=== PATIENT | female | born 1970 | race Caucasian/White ===

== ENCOUNTER 2022-05-25 00:03 | Day surgery (SDC) | payer OTHER, SELFPAY ==
[2022-05-06 09:20] VITALS: BMI 28.3
--- NOTE | 2022-05-24 13:09 | P.PNAN_ITS ---
Anes - Initial Pre Proc Eval Procedure: Operation Date: 05/25/22 07:30 Proposed Procedures p Screening Colonoscopy - Juarez Loja MD Date/Time: 05/24/22 13:09 Surgeon: Juarez Loja MD Pre Op Diagnosis: neoplasm screening Patient Data Age: 51 Gender: F Height: 1.7 m Weight: 82 kg Allergies Allergy/AdvReac Type Severity Reaction Status Date / Time No Known Allergies Allergy Unknown Verified 05/25/22 06:29 Home Medications Medication Instructions Recorded Confirmed Type calcium citrate 315 mg 1 tablet PO DAILY 02/23/22 05/06/22 History calcium-vitamin D3 6.25 mcg (250 unit) tablet (Citracal + Vitamin D Maximum) multivitamin (Daily Multi-Vitamin 1 tablet PO DAILY 02/23/22 05/06/22 History tablet) Fish Oil 700 mg BYMOUTH DAILY 05/06/22 05/06/22 History Patient hx anesthesia problems: none Family hx anesthesia problems: none Results Review: All pre-operative results and documents have been reviewed as part of the pre- operative evaluation. [facility] Past Medical History Medical History (Updated 05/24/22 @ 13:09 by Benigno Madera MD) Macular degeneration Surgical History Surgical History deliv NOS-unsp (~1997) Family History Family History Father Hypertension Mother Hypertension Other Carcinoma of colon Family history of kidney disease Family history of malignant neoplasm Social History Social History Smoking status: Never smoker Alcohol intake: current Drinks per week: 1 Substance use: never Substance use type: does not use Living arrangements: with family Spiritual care concerns: No Anes - Eval Final PreProcedure Day of Procedure 05/24/22 13:09 Patient weight: overweight Heart: regular rate and rhythm Lungs: clear to auscultation and normal air movement Airway: Mallampati scale class II Neurological: alert and oriented Last oral intake: >/= 8 hours ASA classification: II Emergent: no Anesthetic plan: proceed Anesthesia type and monitoring: general GIVS Results Review: All pre-operative results and documents have been reviewed as part of the pre- operative evaluation. Informed Consent: The patient's anesthetic plan and its attendant risks and benefits were discussed with the patient/family/POA. Questions were solicited and answers provided to the satisfaction of the patient/family/POA.
[2022-05-25 06:30] VITALS: BP 124/71; PULSE 80; RESP 18; TEMP 36.2; O2SAT 100; BMI 27.8
[2022-05-25] MEDS: LACTATED RINGERS 1,000 ML 150 ML IV CONT (06:40)
--- NOTE | 2022-05-25 07:25 | PM.HPGS ---
History of Present Illness History of Present Illness Consent: Risks, benefits, and alternatives have been discussed and questions answered. Patient agrees to proceed with procedure. Chief complaint: neoplasm screening Narrative: Chika Esparza is a 51 year old female here for first screening colonoscopy Review of Systems Constitutional: Constitutional: Denies headache(s) and Denies weakness Eyes: Eyes: Denies blurry vision ENT: Reports Normal hearing present, Denies headache(s) and Denies neck pain Cardiovascular: Cardiovascular: Denies chest pain and Denies dyspnea Respiratory: Respiratory: Denies dyspnea Gastrointestinal: Gastrointestinal: Reports no additional gastrointestinal complaints Genitourinary: Genitourinary: Denies dysuria Musculoskeletal: Musculoskeletal: Denies neck pain Integumentary/Breasts: Skin/Breast: Denies dry skin Neurologic: Reports Normal hearing present, Denies headache(s) and Denies weakness Psychiatric: Psychiatric: Denies anxiety Endocrine: Endocrine: Denies change in body appearance Hematologic/Lymphatic: Hematologic/Lymphatic: Denies easy bleeding Allergic/Immunologic: Allergic/Immunologic: Denies urticaria PMF Past Medical History Medical History (Updated 05/25/22 @ 07:26 by Juarez Loja MD) Colon cancer screening Macular degeneration Surgical History Surgical History deliv NOS-unsp (~1997) Family History Family History Father Hypertension Mother Hypertension Other Carcinoma of colon Family history of kidney disease Family history of malignant neoplasm Social History Social History Smoking status: Never smoker Alcohol intake: current Drinks per week: 1 Substance use: never Substance use type: does not use Living arrangements: with family Spiritual care concerns: No Meds Home Medications and Allergies Home Medications Medication Instructions Recorded Confirmed Type calcium citrate 315 mg 1 tablet PO DAILY 02/23/22 05/06/22 History calcium-vitamin D3 6.25 mcg (250 unit) tablet (Citracal + Vitamin D Maximum) multivitamin (Daily Multi-Vitamin 1 tablet PO DAILY 02/23/22 05/06/22 History tablet) Fish Oil 700 mg BYMOUTH DAILY 05/06/22 05/06/22 History Allergies Allergy/AdvReac Type Severity Reaction Status Date / Time No Known Allergies Allergy Unknown Verified 05/25/22 06:29 Vital Signs Vital Signs - 24 hr 05/25/22 06:30 Temperature 97.1 F L Pulse Rate 80 Respiratory Rate 18 Blood Pressure 124/71 Pulse Oximetry 100 Oxygen Delivery Room Air Exam Const: General: comfortable and no acute distress HENMT: General nose exam: Normal nares present Eyes: General: appearance normal, both eyes and all related structures Neck: Neck: no JVD Resp: Auscultation: clear to auscultation bilaterally Cardio: Rate: regular rate Rhythm: regular rhythm GI: Inspection: non-distended GI Palp: Yes Soft to palpation Skin: General skin exam: normal color Neuro: General: gait normal Speech: normal speech Extrem: General: normal to inspection Psych: Mental Status: mental status grossly normal Assessment and Plan Assessment and plan (1) Colon cancer screening: Code(s): Z12.11 - Encounter for screening for malignant neoplasm of colon Status: Acute Assessment and Plan: colonoscopy
[2022-05-25 07:46] VITALS: BP 105/63; PULSE 73; RESP 22; O2SAT 100
[2022-05-25 07:56] VITALS: BP 131/98; PULSE 72; RESP 24; O2SAT 100
[2022-05-25 08:06] VITALS: BP 115/56; PULSE 69; RESP 20; O2SAT 100
== END 2022-05-25 08:13 | disposition home or self-care (01) ==
PROVIDERS: PCP Family Medicine; Visit Provider Internal Medicine Gastroenterology
PROC: 0DJD8ZZ Inspection of Lower Intestinal Tract, Via Natural or Artificial Opening Endoscopic (ICD-10-PCS; CPT 45378; principal; 2022-05-25 07:30)
DX: Z12.11 Encounter for screening for malignant neoplasm of colon (principal); D12.8 Benign neoplasm of rectum; K64.8 Other hemorrhoids; H35.30 Unspecified macular degeneration
CPT/HCPCS: 45385; 88305; J2704; J7120

== ENCOUNTER → 2022-06-24 11:49 | Outpatient (CLI) | payer OTHER, SELFPAY ==
--- NOTE | ~2022-06-24 | XR_ITS ---
XR knee RT min 4V DATE: 06/24/2022 12:10 INDICATION: Chronic right knee pain for one month. No injury. TECHNIQUE: AP, lateral, bilateral oblique views COMPARISON: None FINDINGS: No fracture or dislocation or joint effusion. Joint spaces are well preserved. No radiopaqu e intra-articular loose body or chondrocalcinosis. No periosteal reaction or bone destruction. IMPRESSION: Negative Reviewed, dictated and finalized at location B. IMPRESSION: Negative
== END ==
PROVIDERS: PCP Family Medicine; Visit Provider Family Medicine
DX: M25.561 Pain in right knee (principal)
CPT/HCPCS: 73564

== ENCOUNTER 2022-08-25 16:42 | Outpatient (CLI) | payer OTHER, SELFPAY ==
--- NOTE | ~2022-08-25 | MR_ITS ---
EXAMINATION: MR knee RT wo con DATE: 08/25/2022 17:18 INDICATION: Right knee pain TECHNIQUE: Magnetic resonance imaging (MRI) of the right knee was performed without intravenous contr ast. Sequences included coronal PD-weighted FSE, coronal PD-weighted FS FSE, sagittal T2-weighted FS E, sagittal PD-weighted FS FSE and axial PD weighted fat saturated FSE. COMPARISON: Right knee radiographs dated 06/14/2022 FINDINGS: Medial compartment: Medial meniscus is normal. Mild chondral surface irregularity and minimal subarticular edema-like sig nal change at the junction of the anterior weightbearing medial femoral condyle and the inferior aspe ct of the medial trochlea. Articular cartilage is otherwise normal. Lateral compartment: Lateral meniscus is normal. Mild chondral surface irregularity and minimal subarticular edema-like si gnal change at the junction of the anterior weightbearing lateral femoral condyle and the inferior as pect of the lateral trochlea. Articular cartilage is otherwise normal. Patellofemoral compartment: Articular cartilage is normal aside from the previously noted small regions of mild chondral surface irregularity and minimal subarticular edema-like signal change at the junction of the anterior weight bearing portions of the medial lateral femoral condyles and the inferior aspect of the medial and lat eral trochlea. Ligaments and tendons: Anterior and posterior cruciate ligaments are normal. The medial collateral ligament and fibular saba ateral ligament complex are normal. Patellar tendon is normal. Very mild tendinopathy without discret e tear at the distal quadriceps tendon. The visualized medial and lateral hamstring tendons as well a s the iliotibial band are normal. Fluid: Small right knee joint effusion. No loose osteochondral bodies identified. Osseous/other: Bone alignment is normal. No fracture or pathologic marrow replacing process. IMPRESSION: 1. Minimal osteoarthritis with small regions of shallow chondral surface irregularity and minimal sub articular edema-like signal change at the junctions of the anterior weightbearing medial lateral femo ral condyles in the inferior margins of the medial and lateral trochlea. 2. Very mild distal quadriceps tendinopathy without discrete tear. Reviewed, dictated and finalized at location B. IMPRESSION: 1. Minimal osteoarthritis with small regions of shallow chondral surface irregu larity and minimal subarticular edema-like signal change at the junctions of th e anterior weightbearing medial lateral femoral condyles in the inferior margin s of the medial and lateral trochlea. 2. Very mild distal quadriceps tendinopathy without discrete tear.
== END 2022-08-25 16:43 | disposition home or self-care (01) ==
PROVIDERS: PCP Family Medicine; Visit Provider Orthopaedic Surgery
DX: M17.11 Unilateral primary osteoarthritis, right knee (principal); M25.461 Effusion, right knee
CPT/HCPCS: 73721

== ENCOUNTER 2025-07-23 00:25 | Day surgery (SDC) | payer BC, OTHER, SELFPAY ==
[2025-07-10 15:12] VITALS: BMI 28.2
--- OUTSIDE RECORDS SUMMARY | 2025-07-23 00:28 | XMS_ITS | Encounter Summary ---
Author Organization [facility] Healthcare Address [address] [place] [address] Care Team Providers Care Supreme Court Judge Name Role Phone Matteo Estrada MD Primary Care Provider Encounter Details Date Type Department Care Team (Late st Contact Info) Description 06/14/2025 Results Follow-Up [facility] [address] [place] [address] [address] [place] [address] Florence Gaspar, [facility] [address] [place] [address] Pap, reflex HPV Social History Tobacco Use Types Packs/Day Years Used Date Smoking Tobacco: Never Smokeless Tobacco: Never Alcohol Use Standard Drinks/Week Comments No 0 (1 standard drink = 0.6 oz pur e alcohol) Humiliation, Afraid, Rape, and Kick questionnair e Answer Date Recorded Within the last year, have y ou been afraid of your partner or ex-partner? No 05/09/2024 Within the last year, have y ou been humiliated or emotionally abused in other ways by your partner or ex-partner? No Within the last year, have y ou been kicked, hit, slapped, or otherwise physically hurt by your partner or ex-partner? No 05/09/2024 Within the last year, have y ou been raped or forced to have any kind of sexual activity by your partner or ex-partner? No 05/09/2024 PHQ-2 Answer Date Recorded PHQ-2 Total Score (If total score is 3 or more points, staff should administer the PHQ-9) 0 06/12/2025 Comments No Sex and Gender Information Value Date Recorded Sex Assigned at Not on file Legal Sex Female 1:53 AM LOAD PLANNER Gender Identity Female 05/09/2024 1:39 PM CDT Sexual Orientation Not on file documented as of this encounter Plan of Treatment Not on file documented as of this encounter Visit Diagnoses Not on filedocumented in this encounter Care Teams Supreme Court Judge Relationship Specialty Start Date End Date Matteo Estrada MD PCP - General 09/17/19 documented as of this encounter
--- OUTSIDE RECORDS SUMMARY | 2025-07-23 00:28 | XMS_ITS | Encounter Summary ---
Author Organization [facility] Healthcare Address [address] [place] [address] Care Team Providers Care Glueline Worker Name Role Phone Matteo Estrada MD Primary Care Provider Reason for Visit * Reason Onset Date Comments Scheduling Appointments 04/28/2021 confirmi ng mammogram appt- no answer Encounter Details Date Type Department Care Team (Late st Contact Info) Description 04/28/2021 Telephone [facility] [address] [place] [id number] Tonya Parry RT Scheduling Appointments (confirming mammogram appt- no answer) Social History Tobacco Use Types Packs/Day Years Used Date Smoking Tobacco: Never Smokeless Tobacco: Never Alcohol Use Standard Drinks/Week Comments No 0 (1 standard drink = 0.6 oz pur e alcohol) PHQ-2 Answer Date Recorded PHQ-2 Total Score (If total score is 3 or more points, staff should administer the PHQ-9) 0 01/07/2021 Comments No Sex and Gender Information Value Date Recorded Sex Assigned at Not on file Legal Sex 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
--- OUTSIDE RECORDS SUMMARY | 2025-07-23 00:28 | XMS_ITS | Clinical Summary ---
Author Organization [facility] Address [address] [place] [address] Care Team Providers Care Assembler Seat Name Role Phone Matteo Estrada MD Primary Care Provider Source Comments [facility],non-owned Affiliates and Associated Physician Practices is amultiple site organization consisting of ambulatory clinics and hospital sitesin [place], [place], [place] and [place]. This disclosure is being madepursuant to the Care Everywhere program and may not contain all information available regarding this patient. Last updated 18.[facility] Allergies No known active allergies Medications * Be aware that medications may not be up to date on this document. Alwaysverify current medications with the patient. Azelastine HCl 137 MCG/SPRAY SOLN USE 1 - 2 SPRAY INTRANASALLY EVERY 12 TO 24 HOURS ADMINISTER INTO EACH NOSTRIL. AIM BACK/UP/OUT 4 Active calcium carbonate - vitamin D (Caltrate + D) 600-20 MG-MCG tablet Take 1 (one) tablet by mouth once daily Active Athens-3 Fatty Acids (KP Fish Oil) 1200 MG Active Multiple Vitamins-Minera ls (Daily Combo Multi Vitamins) TABS Active Misc Natural Products (GLUCOSAMINE CHOND CMP ADVANCED PO) Active Active Problems Problem Noted Date Diagnosed Date Myopic macular degeneration of right eye 009 Encounters Date Type Department Care Team Description 07/03/2025 10:45 AM CDT Office Visit [facility] - Otolaryngology [address] [phone] Stanley Coyne MD Vocal cord polyp (Primary Dx); Dysphonia 07/03/2025 Travel 05/28/2025 8:39 AM CDT Anesthesia Event [facility] - General Surgery [address] [facility], [address] [place] [address] Cj Nieto MD 05/28/2025 8:05 AM CDT - 05/28/2025 10:00 AM CDT Surgery [facility] Surgery [address] [place] [address], [address] [place] [address] Stanley Coyne MD SUSPENSION MICROLARYNGOSCOPY WITH EXCISION OF VOCAL FOLD LESION 05/28/2025 6:55 AM CDT - 05/28/2025 11:59 PM CDT Hospital Encounter [facility] Surgery [address] [facility], [address] [place] [address] Stanley Coyne MD Surgery General Discharge Disposition: Home or Self Care 05/21/2025 Travel 04/30/2025 Travel 04/26/2025 Orders Only [facility] - ENT [address] [place] [phone] Saida Verdin 04/25/2025 10:15 AM CDT Office Visit [facility] - ENT [address] [place] [phone] Stanley Coyne MD Vocal cord polyp (Primary Dx); Dysphonia 04/25/2025 Travel from Last 3 Months Immunizations Immunization Administration Dates Next Due COVID PFIZER BIVALENT 12Y+ 30mcg/0.3ML Covid Moderna booster monova lent 6y-11yr 0.5ml 10/10/2021,01/24/2021,12/27/2020 Covid Moderna primary monova lent 12+ yr 0.5mL 10/10/2021,01/24/2021,12/27/2020 TD (ADULT), 5 LF TETANUS TOX OID, ADSORBED, PF 11/02/2023 Zoster Hzv Vacc Recombinant Inj Im 02/17/2024, Social History Tobacco Use Types Packs/Day Years Used Date Smoking Tobacco: Never Passive Smoke Exposure: Past Smokeless Tobacco: Never Tobacco Cessation:Counseling Given: Not Answered Alcohol Use Standard Drinks/Week Comments Yes 0 (1 standard drink = 0.6 oz pur e alcohol) 1x/month Comments No Sex and Gender Information Value Date Recorded Sex Assigned at Not on file Legal Sex Female 3:12 PM CDT Gender Identity Not on file Sexual Orientation Not on file Travel History Travel Start Travel End [place] 06/27/2025 07/02/2025 Last Filed Vital Signs Vital Sign Reading Time Taken Comments Blood Pressure 129/69 07/03/2025 10:46 AM CDT Pulse 75 07/03/2025 10:46 AM CDT Temperature 36 C (96.8 F) 05/28/2025 9:36 AM CDT Respiratory Rate 16 05/28/2025 10:00 AM CDT Oxygen Saturation 98% 07/03/2025 10:46 AM CDT Inhaled Oxygen Concentration - - Weight 81.6 kg (180 lb) 07/03/2025 10:46 AM CDT Height 170.2 cm (5' 7) 07/03/2025 10:46 AM CDT Body Mass Index 28.19 07/03/2025 10:46 AM CDT Plan of Treatment Upcoming Encounters Date Type Department Care Team (Late st Contact Info) Description 10/03/2025 10:45 AM SECURITY AND COMPLIANCE PROJECT MANAGER Office Visit [facility] - Otolaryngology [address] [place] [address] [place] [address] [address] [place] [address] Health Maintenance Due Date Last Done Comments COLOGUARD (AGES 45-75) - COLON CA SCREENING 1968 COLON MONITORING 1968 COLONOSCOPY - COLON CA SCREENING 1968 CT COLONOGRAPHY - COLON CA SCREENING 1968 Colorectal Cancer Screening 1968 FIT - COLON CA SCREENING 1968 FLEX SIG - COLON CA SCREENING 1968 LIPID TESTING 1968 HIV SCREENING 1983 HEPATITIS C SCREENING 12/25/1986 HEPATITIS B VACCINE (1 of 3 - 19+ 3-dose series) 1987 PAP SMEAR 1989 PNEUMOCOCCAL VACCINE 50+ (1 of 1 - PCV) 2018 SCREENING FOR DIABETES 01/18/2024 COVID-19 VACCINE ( season) 2024 09/21/2022, 10/10/2021, 10/10/2021, Additional history exists DEPRESSION SCREENING 11/14/2024 INFLUENZA VACCINE (#1) 2025 MAMMOGRAM 06/30/2026 06/30/2024, 06/14, 06/13/2023, Additional history exists DTAP/TDAP/TD VACCINES (2 - Td or Tdap) 11/02/2033 11/02/2023 ZOSTER VACCINE Completed 02/17/2024, 11/10/2023 HIB VACCINE Aged Out No longer eligi ble based on patient's age to complete this topic HPV VACCINE Aged Out No longer eligi ble based on patient's age to complete this topic MENINGOCOCCAL (Group B) VACCINE SHARED DECISION-MAKING Aged Out No longer eligible based on patient's age to complete this topic MENINGOCOCCAL GROUPS A/C/Y/W VACCINE Aged Out No longer eligible based on patient's age to complete this topic Procedures Procedure Name Priority Date/Time Associated Diagnosis Comments PATHOLOGY TISSUE EXAM (STL) Routine 05/28/2025 9:11 AM CDT Vocal fold polyp ENDOTRACHEAL TUBE NOTE Routine 05/28/2025 8:57 AM CDT MI LARYN OP WALLACE REMV LES VC; RECNSTR W/LOC TISS FLP 05/28/2025 8:16 AM CDT Vocal fold polyp MI LARYNGOSCOPY,FLEX/RIG ID+STROBOSCOPY Routine 04/25/2025 11:08 AM CDT Vocal cord polyp from Last 3 Months Results * PATHOLOGY TISSUE EXAM (STL) (05/28/2025 9:11 AM CDT) Case Report Surgical Pathology Report Case: [id number] Authorizing Provider: Stanley Coyne MD Collected: 05/28/2025 09:11 AM Ordering Location: [facility] - Received: 05/28/2025 11:05 AM General Surgery Pathologist: Bj Mclean MD Specimen: Vocal Cord, left vocal cord lesion 05/29/2025 10:04 AM CDT [facility] Final Diagnosis Left vocal cord lesion, biopsy: -- Vocal cord polyp 05/29/2025 10:04 AM T [facility] at 1004 CDT Gross Description Received in formalin labeled with patient's name and left vocal cord lesion are 2 fragments of glass tissue 1 measures 1 mm. The other measures 4 x 1 mm. Submitted entirely in cassette A1. 05/29/2025 10:04 AM CDT [facility] Microscopic Description Microscopic examination substantiates the above cited diagnosis. 05/29/2025 10:04 AM CDT [facility] Disclaimer All histochemical and/or immunohistochemical results are interpreted with controls that demonstrate appropriate staining reactions before reporting results. Note on use of immunocytochemistry reagents: This test was developed and its performance characteristic determined by [facility], Department of Laboratory Medicine. It has not been cleared or approved by the U.S. Food and Drug Administration (FDA). The FDA has determined that such clearance or approval is not necessary. The test is used for clinical purpose. It should not be regarded as investigational or for research. This laboratory is certified to perform high complexity testing. The performance characteristics of the IHC/BILLY assays have been validated on formalin-fixed paraffin embedded tissues only. The assays have not been validated on decalcified tissues. Results should be interpreted with caution. 05/29/2025 10:04 AM CDT [facility] Embedded Images 05/29/2025 10:04 AM CDT [facility] Pathology/Cytolo gy ENTIRE VOCAL CORD / Unknown 05/28/2025 9:11 AM CDT 05/28/2025 11:05 AM CDT Comment:Pre-op diagnosis: Vocal fold polyp [J38.1] Stanley Coyne MD LAB - PATHOLOGY/CYTOLOGY ORDERABLES Final Result [facility] [address] [place] [address] * ETT LINE PERFORMABLE (05/28/2025 8:57 AM CDT) Ava Klein APRN-CRNA - 05/28/2025 8:57 AM CDT Ava Munoz APRN-CRNA 05/28/2025 8:59 AM Endotracheal Tube Placement: Patient Location: OR. Intubation Event Date/Time: 05/28/2025 8:44 AM Procedure: intubation ([id number]) Procedure Section: Sedation: under general anesthesia. Indications for Airway Management: anesthesia Induction: standard IV Patient Position: supine Mask Ventilation: easy with oral airway. Blade Type: Video Blade Size: 3 Laryngoscopy View: grade 1 (full cords) Tube: endotracheal tube Placement: oral Tube type: cuff - inflated Tube Size (MM): 5 Depth of Insertion (CM): 22 Measured From: teeth Cuff volume (mL): 5 Cuff Inflated With: air Number of Attempts: 2. Ventilation between attempts: Yes. Placement Verified By: direct visualization, bilateral breath sounds and CO2 monitor Tube secured with: adhesive tape. Dentition unchanged? Yes Difficult Airway? Yes. Technique: video laryngoscope Reason: anterior larynx, small mouth and other - please comment Procedure Start Time: 05/28/2025 8:44 AM. Procedure End Time: 05/28/2025 8:47 AM. Procedure Total Time: 3 minutes. Staff Section Anesthesia Provider: Ava Munoz APRN-CRNA, Performed the procedure us Cj Nieto MD GENERAL ANESTHESIA ORDERABLE S Final Result * MI LARYNGOSCOPY,FLEX/RIGID+STROBOSCOPY (04/25/2025 11:08 AM CDT) Narrative Aryan Romero MD - 04/25/2025 11:08 AM CDT Aryan Romero MD 04/25/2025 4:35 PM Procedure Note Endoscopy Type: Laryngoscopy with Stroboscopy [id number] Endoscope: Flexible 4mm laryngocope Anesthesia: Lidocaine 2% and Neosynephrine 1/2% (nasal) Procedure Details: The patient was sitting upright in a chair with the head in a slightly anterior sniffing position. The topical anesthesia was administered and then adequate time was allowed for an anesthetic effect. The endoscope was passed thru the nasal cavity with the tongue retracted anteriorly. The tip of the endoscope was positioned in the oropharynx which allowed a complete view of the base of tongue, vallecula, pyriform recesses, epiglottis, bilateral true and false vocal folds, the interarytenoid and post cricoid region, and the immediate subglottis. Findings: Normal movement of the arytenoids and vocal folds bilaterally. Small midfold polyp on medial edge of left true vocal fold partially impacting glottic closure essentially unchanged from a year ago. There is still complete glottic closure with effort with a symmetric mucosal wave. No masses or lesions of the visible supraglottis and subglottis. mild interarytenoid erythema or edema. moderate supraglottic compression. mild laryngeal secretions. No pooling of secretions in the piriform sinuses. No lesions of the nasal cavity, nasopharynx, oropharynx, hypopharynx, and post-cricoid regions were noted. Condition: Stable. Patient tolerated procedure well. Complications: None Dr. Coyne was present for the entirety of the procedure. Stanley Coyne MD PROCEDURE/MINOR SURGICAL ORDERABLES Final Result from Last 3 Months Insurance [facility] [facility] Care Teams Assembler Seat Relationship Specialty Start Date End Date Matteo Estrada MD [address] [facility] [address] PCP - General Family Medicine 01/18/24
--- OUTSIDE RECORDS SUMMARY | 2025-07-23 00:28 | XMS_ITS | Clinical Summary ---
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 Player Name Role Phone Matteo Estrada MD Primary Care Provider Allergies No known active allergies Medications multivitamin-Ca- iron-minerals 18-0.4 mg tablet Take by mouth Active calcium carbonate-vitami n D3 1,500 mg (600mg elemental) -800 unit per tablet Take 1 tablet by mouth daily Active fish oil-dha-epa 1,200-144-216 mg capsule Take by mouth Active glucosamine-hola droitin 250-200 mg tablet 12/07/2023 Active Active Problems Problem Noted Date Diagnosed Date Family history of breast cancer in mother 2024 Assessment & Plan (06/12/2025 11:51 AM CDT): We will plan for prior authorization for breast MRI. Resolved Problems Problem Noted Date Diagnosed Date Resolved Date No pathologic diagnosis 04/18/201305/16 Overview (02/18/2017): No diagnosis Encounters Date Type Department Care Team Description 06/14/2025 Results Follow-Up Grant Farah [address] [place] [address] [address] [place] [address] Татьяна Haynes NP Pap, reflex HPV 06/12/2025 8:30 AM CDT Office Visit Grantdick Farah [address] [place] [address] [address] [place] [address] Татьяна Haynes NP Well woman exam (Primary Dx); Encounter for screening mammogram for malignant neoplasm of breast; Family history of breast cancer in mother from Last 3 Months Surgical History Surgery Date Site/Laterality Comments OTHER SURGICAL HISTORY 11/14/1997 - 11/13/1998 : 12 hr labor OTHER SURGICAL HISTORY 11/14/2002 - 11/13/2003 : 5 hr labor Medical History Medical History Date Comments Hx Other Medical 2007 Macular degener ation Female infertility Infertility Hx Other Medical 1997 ; Outc ome: 40 week 8 lb(s) 6 oz Male Hx Other Medical 2002 ; Outc ome: 40 week 7 lb(s) 13 oz Female Family History Medical History Relation Name Comments Hypertension Father Hypertension; Osteoporosis Maternal Grandmother Osteopo rosis; Breast cancer Maternal Great-Grandmother Breast cancer Mother Triple positiv e, mastectomy. 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 Gender Identity Female 05/09/2024 1:39 PM CDT Sexual Orientation Not on file Obstetrics History Para Term AB IAB SAB Ectopic Multiple Livin g Live Births 2 2 2 2 2 Date Outcome GA Total Labor Labor/2nd/3rd Weight Sex Type Anes PTL Court A1 A5 Name Clin Term CS-Unsp ec Term Vag-Vac uum Last Filed Vital Signs Vital Sign Reading Time Taken Comments Blood Pressure 110/70 06/12/2025 8:34 AM CDT Pulse - - Temperature - - Respiratory Rate - - Oxygen Saturation - - Inhaled Oxygen Concentration - - Weight 83.3 kg (183 lb 9.6 oz) 06/12/2025 8:34 A M CDT Height 170.2 cm (5' 7) 05/09/2024 10:09 AM CDT Body Mass Index 28.76 05/09/2024 10:09 AM CDT Plan of Treatment Health Maintenance Due Date Last Done Comments Colon Cancer Screening-Colonoscopy 1970 Hepatitis C Screening 1970 Hepatitis B Screening 1986 DTaP/Tdap/Td Vaccine (1 - Tdap) 11/03/2023 11/02/2023 Breast Cancer Screening-Mammogram 06/30/2025 06/30/2024, 06/13/2023, 05/06/2022, Additional history exists Covid-19 Vaccine ( season) 2025 10/10/2021, 01/24/2021, 12/27/2020 Influenza Vaccine (#1) 2025 Cervical Cancer Screening 06/12/20262024, 05/09/2024, 02/22/2022, Additional history exists Depression Screening 06/12/2026 06/12/2025, 05/09/2024, 02/22/2022, Additional history exists Regular Well Visit/Exam 18-64 06/12/2026 06/12/2025, 05/09/2024, 04/18/2023, Additional history exists Zoster Vaccine Completed 02/17/2024, 11/10/2023 Pneumococcal vaccine <65 Aged Out No longer eligible based on patient's age to complete this topic Procedures Procedure Name Priority Date/Time Associated Diagnosis Comments PAP, REFLEX HPV Routine 06/12/2025 8:45 AM CDT Well woman exam SCREENING MAMMOGRAM BILATERAL W ATILIO Schedule Routine, Read Routine (OP Routine) 06/30/2024 10:07 AM CDT Encounter for screening mammogram for malignant neoplasm of breast from Last 3 Months or Most Recently Relevant to Health Maintenance Results * Pap, reflex HPV (06/12/2025 8:45 AM CDT) Clinical indication Comment [facility] - 01 Comment:NEGATIVE FOR INTRAEP ITHELIAL LESION OR MALIGNANCY. Specimen adequacy: Comment [facility] - 01 Comment: Satisfactory for evaluation. Endocervical and/or squamous metaplastic cells (endocervical component) are present. Clinician provided ICD10 Comment [facility] - 01 Comment:Z01.419 Performed by Comment [facility] - 01 Comment:Cher Mendez, Parking Enforcer (ASCP) . . [facility] - 01 Note: Comment [facility] - 01 Comment: The Pap smear is a screening test designed to aid in the detection of premalignant and malignant conditions of the uterine cervix. It is not a diagnostic procedure and should not be used as the sole means of detecting cervical cancer. Both false-positive and false-negative reports do occur. Test methodology Comment [facility] - 01 Comment: This liquid based ThinPrep(R) pap test was screened with the use of an image guided system. . Comment [facility] - 01 Comment: The HPV DNA reflex criteria were not met with this specimen result therefore, no HPV testing was performed. Thin prep 06/12/2025 8:45 AM CDT 06/12/2025 Narrative [facility] - 06/14/2025 10:11 AM CDT Performed at: - [address] [id number] Neon Electrician: Nani Perera MD, Phone: [phone] Specimen Comment: [id number] Specimen Comment: No. of containers..01 ThinPrep Vial us Татьяна Haynes NP LAB CYTOLOGY ORDERABLES Fin al Result [facility] - 01 * Screening Mammogram Bilateral W Atilio (06/30/2024 10:07 AM CDT) Anatomical Region Laterality Modality Breast Bilateral Mammography 07/02/2024 8:35 AM CDT Impressions 07/02/2024 8:35 AM CDT There is no mammographic evidence of malignancy. A 1 year screening mammogram is recommended. BI-RADS: 1 - Negative. The patient has been or will be contacted. The patient will be entered into a reminder system with a target due date of 1 year for her next mammogram. Electronically signed by: Dolly Dias M.D. Narrative 07/02/2024 8:35 AM CDT EXAMINATION: SCREENING MAMMOGRAM BILATERAL W ATILIO ORDERING HEALTHCARE PROVIDER: ТАТЬЯНА HAYNES HISTORY: Routine screening mammography. COMPARISON: 06/13/2023, 05/06/2022, 04/29/2021, 11/05/2019 TECHNIQUE: CC and MLO views of the bilateral breasts were obtained with digital technique using breast tomosynthesis with C view. Computer aided detection was utilized. FINDINGS: DENSITY: There are scattered fibroglandular elements in the bilateral breasts. BREASTS: There are no suspicious masses, suspicious calcifications, or other suspicious findings in either breast. There has been no suspicious interval change. Татьяна Haynes TARP REPAIRER IMG MAMMO PROCEDURES Final Result from Last 3 Months or Most Recently Relevant to Health Maintenance Insurance [facility] CHOICE PLUS [facility] HMO/PPO Address: [address] [address] [place] [address] [facility] H[facility] CHOICE PLUS [facility] HMO/PPO Address: [address] [address] [place] [address] [facility] Care Teams [employer]fl Player Relationship Specialty Start Date End Date Matteo Estrada MD PCP - General 09/17/19
[2025-07-23 07:15] VITALS: BP 122/67; PULSE 80; RESP 16; TEMP 36.5; O2SAT 100; BMI 28.5
[2025-07-23] MEDS: LACTATED RINGERS 1,000 ML 150 ML IV CONT (07:30)
--- NOTE | 2025-07-23 07:45 | P.PNAN_ITS ---
Anes - Initial Pre Proc Eval Procedure: Operation Date: 07/23/25 08:30 Proposed Procedures p Screening Colonoscopy - Juarez Loja MD Date/Time: 07/23/25 07:45 Surgeon: Juarez Loja MD Pre Op Diagnosis: Personal history of colon polyps, unspecified Patient Data Age: 54 Gender: F Height: 1.7 m Weight: 82.6 kg Last Vital Signs Temp 36.5 C 07/23/25 07:15 Pulse 80 07/23/25 07:15 Resp 16 07/23/25 07:15 BP 122/67 07/23/25 07:15 Pulse Ox 100 07/23/25 07:15 O2 Del Method Room Air 07/23/25 07:15 Allergies Allergy/AdvReac Type Severity Reaction Status Date / Time No Known Allergies Allergy Unknown Verified 07/23/25 07:19 Home Medications ?Medication ?Instructions ?Recorded ?Confirmed ?Type multivitamin (Daily Multi-Vitamin 1 tablet PO DAILY 07/23/25 History tablet) Fish Oil 700 mg BYMOUTH DAILY 2 07/23/25 History glucosamine HCl 1,500 mg tablet 1,500 mg PO DAILY 06/1407/23/25 History calcium-vitamin D2-iron tablet 1 tablet PO DAILY 10/2507/23/25 History azelastine 137 mcg (0.1 %) nasal 1 - 2 spray intranasa l .q12-24h 12/26/24 07/10/25 History spray PRN allergy symptoms Patient hx anesthesia problems: none Family hx anesthesia problems: none Results Review: All pre-operative results and documents have been reviewed as part of the pre- operative evaluation. [facility] Past Medical History Medical History History of colon polyps History of blood clots (~01/2009) LLE DVT Squamous cell carcinoma Skin cancer (melanoma) Macular degeneration Surgical History Surgical History History of endometrial ablation (~2010) (normal spontaneous vaginal delivery) (~2002) History of tooth extraction (~1990) deliv NOS-unsp (~1997) Family History Family History Father Hypertension Mother Hypertension Arthritis Breast cancer Other Carcinoma of colon Family history of kidney disease Social History Social History Smoking status: Never smoker Alcohol intake: current Drinks per week: 1 Substance use: never Substance use type: does not use Lack of Transportation: No Lack of Food: Never True Current Housing: I Have Housing Concerned About Future Housing: No Difficulty Paying Gas/Electric Bills: No Difficulty Paying for Meds: No Currently Unemployed: No Education: Bachelor's Degree Difficulty w/ Childcare or Family Care: No Living arrangements: with family Additional living arrangements comments: Spouse and daughter Occupation/Education: occupation Additional occupation/education comments: Teacher Gender identity (if verbalized by the patient): Female Sexual Orientation (if Verbalized by the Patient): Straight or Heterosexual Spiritual care concerns: No Anes - Eval Final PreProcedure Day of Procedure 07/23/25 07:45 Patient weight: overweight Heart: regular rate and rhythm Lungs: clear to auscultation Airway: Mallampati scale class II Neurological: alert and oriented Last oral intake: >/= 8 hours ASA classification: II Emergent: no Anesthetic plan: proceed Anesthesia type and monitoring: general GIVS and standard monitoring Results Review: All pre-operative results and documents have been reviewed as part of the pre- operative evaluation. Informed Consent: The patient's anesthetic plan and its attendant risks and benefits were discussed with the patient/family/POA. Questions were solicited and answers provided to the satisfaction of the patient/family/POA.
--- NOTE | 2025-07-23 08:13 | PM.HPGS ---
History of Present Illness History of Present Illness Consent: Risks, benefits, and alternatives have been discussed and questions answered. Patient agrees to proceed with procedure. Chief complaint: Personal history of colon polyps, unspecified Narrative: Chika Esparza is a 54 year old female with colon polyp in 2021 Review of Systems Review of Systems: All systems reviewed & are unremarkable except as noted in HPI and below PMFSH Past Medical History Medical History (Updated 07/23/25 @ 08:14 by Juarez Loja MD) Colon polyp History of colon polyps History of blood clots (~01/2009) LLE DVT Squamous cell carcinoma Skin cancer (melanoma) Macular degeneration Surgical History Surgical History History of endometrial ablation (~2010) (normal spontaneous vaginal delivery) (~2002) History of tooth extraction (~1990) deliv NOS-unsp (~1997) Family History Family History Father Hypertension Mother Hypertension Arthritis Breast cancer Other Carcinoma of colon Family history of kidney disease Social History Social History Smoking status: Never smoker Alcohol intake: current Drinks per week: 1 Substance use: never Substance use type: does not use Lack of Transportation: No Lack of Food: Never True Current Housing: I Have Housing Concerned About Future Housing: No Difficulty Paying Gas/Electric Bills: No Difficulty Paying for Meds: No Currently Unemployed: No Education: Bachelor's Degree Difficulty w/ Childcare or Family Care: No Living arrangements: with family Additional living arrangements comments: Spouse and daughter Occupation/Education: occupation Additional occupation/education comments: Teacher Gender identity (if verbalized by the patient): Female Sexual Orientation (if Verbalized by the Patient): Straight or Heterosexual Spiritual care concerns: No Meds Home Medications and Allergies Home Medications ?Medication ?Instructions ?Recorded ?Confirmed ?Type multivitamin (Daily Multi-Vitamin 1 tablet PO DAILY 02/23/22 07/23/25 History tablet) Fish Oil 700 mg BYMOUTH DAILY 05/06/22 07/23/25 History glucosamine HCl 1,500 mg tablet 1,500 mg PO DAILY 06/24/22 07/23/25 History calcium-vitamin D2-iron tablet 1 tablet PO DAILY 10/25/23 07/23/25 History azelastine 137 mcg (0.1 %) nasal 1 - 2 spray intranasal .q12-24h 12/26/24 07/10/25 History spray PRN allergy symptoms Allergies Allergy/AdvReac Type Severity Reaction Status Date / Time No Known Allergies Allergy Unknown Verified 07/23/25 07:19 Vital Signs Vital Signs - 24 hr 07/23/25 07:15 Temperature 97.7 F Pulse Rate 80 Respiratory Rate 16 Blood Pressure 122/67 Pulse Oximetry 100 Oxygen Delivery Room Air Exam Const: General: comfortable and no acute distress HENMT: Face/Nose/Sinus: Normal nares present Eyes: General: appearance normal, both eyes and all related structures Neck: Neck: no JVD Resp: Auscultation: clear to auscultation bilaterally Cardio: Rate: regular rate Rhythm: regular rhythm GI: Inspection: non-distended GI Palp: Yes Soft to palpation Skin: General skin exam: normal color Neuro: Speech: normal speech Extrem: General: normal to inspection Psych: Mental Status: mental status grossly normal Assessment and Plan Assessment and plan (1) Colon polyp: Code(s): K63.5 - Polyp of colon Status: Acute Assessment and Plan: colonoscopy
[2025-07-23 08:26] VITALS: BP 99/69; PULSE 78; RESP 19; O2SAT 100
--- NOTE | 2025-07-23 08:26 | S_PTH ---
PATIENT: Chika Esparza LOC: [facility]#:[id number] AGE/SX: 54/F ROOM: RE07/23/[address]: Juarez Loja MD : 1970 BED: DIS: 07/23/2025 SPEC #: [id number] RECD: 07/23/25 09:03 STATUS: [place] #: [id number] MAGALY: 07/23/25 08:[address]: Juarez Loja DEPT: [facility] Surgical RECD BY: Reji Santos ENTERED: 07/23/25 09:04 SP TYPE: Surgical OTHR DR: Matteo Estrada MD Tissues: A - Colon Polypectomy B - Colon Polypectomy Procedures: Hematoxylin and Eosin Stain Gross and Microscopic Level 4
[2025-07-23 08:36] VITALS: BP 96/66; PULSE 63; RESP 16; O2SAT 99
[2025-07-23 08:46] VITALS: BP 108/65; PULSE 64; RESP 16; O2SAT 100
== END 2025-07-23 08:52 | disposition home or self-care (01) ==
PROVIDERS: PCP Family Medicine; Visit Provider Internal Medicine Gastroenterology
PROC: 0DJD8ZZ Inspection of Lower Intestinal Tract, Via Natural or Artificial Opening Endoscopic (ICD-10-PCS; CPT 45378; principal; 2025-07-23 08:30)
DX: Z12.11 Encounter for screening for malignant neoplasm of colon (principal); D12.4 Benign neoplasm of descending colon; K63.5 Polyp of colon; K64.8 Other hemorrhoids; H35.30 Unspecified macular degeneration; Z98.890 Other specified postprocedural states; Z98.891 History of uterine scar from previous surgery; Z86.718 Personal history of other venous thrombosis and embolism; Z85.828 Personal history of other malignant neoplasm of skin; Z85.820 Personal history of malignant melanoma of skin; Z80.0 Family history of malignant neoplasm of digestive organs; Z80.3 Family history of malignant neoplasm of breast
CPT/HCPCS: 45380; 45385; 88305; J2003; J2704; J7120